=== PATIENT | male | born 1980 ===

== ENCOUNTER 2018-05-07 06:01 | Day surgery (SDC) | payer OTHER ==
[~2018-05-07 06:01] MED LIST: NORVASC5 MG PO
[2018-05-07] MEDS ORDERED: COLACE100 MG PO (08:39)
[2018-05-07] MEDS ORDERED: PERCOCET 5-3251 EACH PO (08:39)
== END 2018-05-07 13:00 | disposition home or self-care (01) ==
LOC: CIR.AMB 06:01
DX: K60.3 Anal fistula (principal)

== ENCOUNTER 2018-07-30 06:45 | Day surgery (SDC) | payer OTHER ==
[~2018-07-30 06:45] MED LIST changes: +COLACE100 MG PO; +PERCOCET 5-3251 EACH PO
[2018-07-30] MEDS ORDERED: PERCOCET 5-3251 EACH PO (14:26)
[2018-07-30] MEDS ORDERED: COLACE100 MG PO (14:27)
== END 2018-07-30 15:40 | disposition home or self-care (01) ==
LOC: CIR.AMB 06:45
DX: K60.3 Anal fistula (principal)